=== PATIENT | female | born 1980 | race Native Hawaiian/Other Pacific Islander ===

== ENCOUNTER 2016-12-18 15:41 | Inpatient (IN) | payer MEDICAID ==
[~2016-12-18] VITALS: Ht 172.7 cm; Wt 150.6 kg
[2016-12-18 16:14] VITALS: BP 151/87
--- NOTE | 2016-12-18 19:12 | NUR ---
Patient to OF2.
--- NOTE | 2016-12-18 19:30 | NUR ---
PATIENT PRESENTS TO ED WITH SEEN AT [facility] 5 DAYS AGO AND 2 DAYS AGO SAME COMPLAINT--- PAIN EPIGASTRIC RADIATING RUQ AND RLQ SHARP PAIN---ALSO PAIN TO LOWER BACK RADIATING RLE DENIES INCONTINENCE-- HX---GALLSTONES, SCIATICA?? RX---MOTRIN, HAS NOT FILLED RX OF NORCO AND ZOFRAN; DENIES N/V/D; SKIN IS PINK/WARM/DRY; AAOX4 WITH EVEN AND STEADY GAIT; LUNGS CLEAR BL; HR EVEN AND REGULAR; PT DENIES ANY FEVER, CP, SOB, OR COUGH AT THIS TIME; PATIENT STATES PAIN OF 10/10 AT THIS TIME; VSS; PATIENT POSITIONED FOR COMFORT; HOB ELEVATED; BEDRAILS UP X2; BED DOWN. ER MD MADE AWARE OF PT STATUS.
--- NOTE | 2016-12-18 19:31 | NUR ---
Dr. Ambrocio evaluating patient
[2016-12-18] MEDS ORDERED: HYDROcodone/APAP 10/325 MG 1 TAB TAB PO STA ×2 (19:32→20:46)
[2016-12-18] MEDS ORDERED: ONDANSETRON 4 MG ODT PO ONE (19:35)
--- NOTE | 2016-12-18 19:47 | NUR ---
PT MOVED TO BED 3
--- NOTE | 2016-12-18 20:21 | NUR ---
Ultrasound at bedside.
--- NOTE | 2016-12-18 22:12 | NUR ---
REPORT GIVEN TO ANAHY HARRISON
[2016-12-18] MEDS ORDERED: MORPHINE SULFATE 4 MG/ML SYR IVP PRN (22:15)
[2016-12-18] MEDS ORDERED: MORPHINE SULFATE 2 MG/ML SYR IVP PRN (22:15)
--- NOTE | 2016-12-18 22:30 | NUR ---
X-Ray at bedside.
--- NOTE | 2016-12-18 22:30 | NUR ---
PT C/O 05/02 RUQ PAIN. PT STATES SHE RECEIVED NORCO BUT IT DID NOT HELP. DR. ANDINO MADE AWARE. ORDERS RECEIVED.
[2016-12-18] MEDS ORDERED: HYDROmorphone 1 MG/ML AMP IVP ONE (22:35)
[2016-12-18 22:37] LABS: BASOPHILS # (AUTO) 0.2 K/uL (0.00-0.22); EOSINOPHILS # (AUTO) 0.2 K/uL (0-0.4); EOSINOPHILS % (AUTO) 2.3 % (0.0-4.0); HEMATOCRIT 39.5 % (36-48); HEMOGLOBIN 13.3 g/dL (12.0-16.0); LYMPHOCYTES # (AUTO) 1.8 K/uL (2.5-16.5); LYMPHOCYTES % (AUTO) 26.5 % (20.5-51.1); MEAN CORPUSCULAR HEMOGLOBIN 28 pg (27-31); MEAN CORPUSCULAR HGB CONC 34 g/dL (33-37); MEAN CORPUSCULAR VOLUME 84 fL (80-94); MONOCYTES # (AUTO) 0.6 K/uL (0.8-1.0); MONOCYTES % (AUTO) 9.3 % (1.7-9.3); PLATELET COUNT (AUTO) 195 K/uL (140-450); RED BLOOD CELL COUNT(AUTO) 4.69 MIL/uL (4.20-5.40); RED CELL DISTRIBUTION WIDTH 13.2 % (11.6-13.7); WHITE BLOOD COUNT (AUTO) 6.8 K/uL (4.8-10.8)
--- NOTE | 2016-12-18 22:51 | NUR ---
Patient will be admitted to care of Dr. Sajan Quevedo. Admited to M/S. Will go to [id number]. Belongings list completed. Report to Jossue NORTH.
[2016-12-18 23:00] LABS: BILIRUBIN,URINE 1+ (NEGATIVE); BLOOD, URINE NEGATIVE (NEGATIVE); COLOR,URINE YELLOW (YELLOW); LEUKOCYTE ESTERASE ,URINE NEGATIVE (NEGATIVE); NITRITE, URINE NEGATIVE (NEGATIVE); PROTEIN,URINE NEGATIVE (NEGATIVE); UGLUCOSE NEGATIVE (NEGATIVE)
[2016-12-18 23:04] LABS: ALBUMIN 3.6 g/dL (3.4-5.0); ANION GAP 12.3 (8-16); CALCIUM 8.9 mg/dL (8.5-10.1); CARBON DIOXIDE 27.3 mmol/L (21-32); CREATININE 0.9 mg/dL (0.6-1.3); POTASSIUM 3.6 mmol/L (3.5-5.1); TOTAL BILIRUBIN 0.3 mg/dL (0.0-1.0); TOTAL PROTEIN, SERUM 7.6 g/dL (6.4-8.2)
[2016-12-18] MEDS ORDERED: ONDA8ODT2 PO (23:05)
[2016-12-18] MEDS ORDERED: IBUP-2213 PO (23:05)
--- NOTE | 2016-12-18 23:15 | NUR ---
ADMITTED A PATIENT FROM ER, TRANSPORTED VIA WHEELCHAIR, ACCOMPANIED BY ER EMT. PATIENT IS AAOX4, DENIES PAIN AT THIS TIME. ON ROOM AIR, HAS NO S/S OF RESPIRATORY DISTRESS/DISCOMFORT NOTED. IV SITE PATENT AND INTACT. V/S CHECKED AND STABLE. ID BAND UPDATED, ROOM ORIENTATION DONE, MRSA SWABBING DONE, SKIN CHECKING DONE. PLAN OF CARE DISCUSSED, VERBALIZED UNDERSTANDING. SAFETY MEASURES INITIATED, CALL LIGHT WITHIN REACH. WILL CONTINUE TO MONITOR.
[2016-12-18 23:18] LABS: INR 1.2 (0.8-1.2); PARTIAL THROMBOPLASTIN TIME 24.9 secs (22-35.6); PROTHROMBIN TIME 11.6 secs (10.8-13.4)
[2016-12-18 23:23] LABS: APPEARANCE,URINE CLOUDY (CLEAR)
[2016-12-18 23:30] VITALS: BP 147/89
[2016-12-18] MEDS: DEXT 5% /NACL 0.9% 1,000 ML IV SCH (23:39)
[2016-12-18 23:41] LABS: BACTERIA,URINE OCCASSIONAL /HPF (None Seen); ICTOTEST NEGATIVE (NEGATIVE); RBC,URINE 0-5 (RARE) /HPF (0-5); SQUAMOUS EPITHELIAL CELL,UR 5 /LPF (0-3 (FEW)); URINE AMORPHOUS URATE 2+ /HPF (None Seen); WBC,URINE 0-5 (RARE) /HPF (0-5)
[2016-12-19] VITALS: BP 138/88
[2016-12-19] MEDS: ONDANSETRON 4 MG/2 ML VIAL IVP PRN ×4 (02:05→21:41)
--- NOTE | 2016-12-19 02:14 | NUR ---
PATIENT COMPLAINED OF PAIN AND FEELING NAUSEOUS. ADMINISTERED MEDICATION FOR PAIN AND FOR N/V.
--- NOTE | 2016-12-19 02:41 | NUR ---
PT IS AWAKE , REDUCED PAIN LEVEL SHE STATED. CALL LIGHT WITHIN REACH.
--- NOTE | 2016-12-19 05:30 | NUR ---
PT AMBULATED TO THE REST ROOM, NO DISTRESS NOTED. REMINDED TO USE CALL LIGHT, VERBALIZED UNDERSTANDING.
[2016-12-19 06:49] LABS: BASOPHILS # (AUTO) 0.2 K/uL (0.00-0.22); BASOPHILS % (AUTO) 4.3 % (0.0-2.0); EOSINOPHILS # (AUTO) 0.1 K/uL (0-0.4); HEMATOCRIT 37.6 % (36-48); HEMOGLOBIN 12.5 g/dL (12.0-16.0); LYMPHOCYTES # (AUTO) 1.4 K/uL (2.5-16.5); LYMPHOCYTES % (AUTO) 27.9 % (20.5-51.1); MEAN CORPUSCULAR HEMOGLOBIN 29 pg (27-31); MEAN CORPUSCULAR HGB CONC 33 g/dL (33-37); MEAN CORPUSCULAR VOLUME 86 fL (80-94); MONOCYTES # (AUTO) 0.5 K/uL (0.8-1.0); MONOCYTES % (AUTO) 9.8 % (1.7-9.3); NEUTROPHILS # (AUTO) 2.9 K/uL (1.8-7.7); PLATELET COUNT (AUTO) 184 K/uL (140-450); RED BLOOD CELL COUNT(AUTO) 4.38 MIL/uL (4.20-5.40); WHITE BLOOD COUNT (AUTO) 5.1 K/uL (4.8-10.8)
[2016-12-19 07:12] LABS: ALBUMIN 3.3 g/dL (3.4-5.0); ANION GAP 11.3 (8-16); CALCIUM 8.4 mg/dL (8.5-10.1); CARBON DIOXIDE 28.4 mmol/L (21-32); CREATININE 0.8 mg/dL (0.6-1.3); POTASSIUM 3.7 mmol/L (3.5-5.1); TOTAL BILIRUBIN 0.3 mg/dL (0.0-1.0); TOTAL PROTEIN, SERUM 7.2 g/dL (6.4-8.2)
--- NOTE | 2016-12-19 07:15 | NUR ---
ENDORSED PT TO DAY SHIFT NURSE. PT IN STABLE CONDITION.
--- NOTE | 2016-12-19 07:16 | NUR ---
PT AWAKE AND LYING ON BED, AAOX4 WITH NO S/S OF RESPIRATORY DISTRESS, BUT COMPLAINING OF ABDOMINAL PAIN. PER ROLLWAY MAN RN SHE CANNOT BE GIVEN PAIN MED UNTIL THE HIDA SCAN IS DONE. INFORMED PT THAT SHE WILL BE GIVEN PAIN MEDS AFTER THE SCAN, PT VERBALIZED UNDERSTANDING. SKIN IS INTACT. DISCUSSED PLAN OF CARE, PT VERBALIZED UNDERSTANDING. CALL LIGHT WITHIN REACH, WILL CONTINUE TO MONITOR
[2016-12-19 08:00] VITALS: BP 152/98
[2016-12-19] MEDS: DEXT 5% /NACL 0.9% 1,000 ML IV SCH ×2 (09:09→19:00)
--- NOTE | 2016-12-19 10:20 | NUR ---
DR BURCIAGA PAGED RE: CONSULT
--- NOTE | 2016-12-19 10:21 | NUR ---
NOTIFIED DR IRENE RE: CONSULT, PER MD HE IS NOT AVAILABLE TODAY AND WILL TRANSFER TO DR GAINES
--- NOTE | 2016-12-19 10:25 | NUR ---
DR GAINES NOTIFIED, WILL SEE TODAY OR TOMORROW
--- NOTE | 2016-12-19 10:31 | NUR ---
PER DR BURCIAGA HE IS NOT AVAILABLE, WILL REFER TO DR MARIELA DUARTE MD
--- NOTE | 2016-12-19 11:10 | NUR ---
PATIENT HAS BEEN SCREENED AND CATEGORIZED HIGH NUTRITION RISK. PATIENT WILL BE SEEN WITHIN 1-2 DAYS OF ADMISSION. 12/19/16 - 12/20/16 SADE OCONNOR MBA, RD
--- NOTE | 2016-12-19 11:15 | NUR ---
HIDA SCAN ONGOING AT BEDSIDE
[2016-12-19] MEDS: HYDROmorphone 1 MG/ML AMP IVP PRN ×3 (12:30→21:42)
--- NOTE | 2016-12-19 13:02 | NUR ---
PT AWAKE USING HER PHONE, ALL NEEDS ATTENDED. WILL CONTINUE TO MONITOR
--- NOTE | 2016-12-19 15:44 | NUR ---
PT COMPLAINED OF SHARP PAIN AND CRAMPING ON HER RIGHT LEG. NOTIFIED DR BARRAGAN. WILL ORDER UTS VENOUS OF RIGHT LEG.
[2016-12-19 16:00] VITALS: BP 138/76
--- NOTE | 2016-12-19 17:34 | NUR ---
PT AWAKE, WAS JUST GIVEN PAIN MEDICATION AND SRINATH, STATED SHE IS MORE COMFORTABLE NOW. CALL LIGHT WITHIN REACH, WILL CONTINUE TO MONITOR
--- NOTE | 2016-12-19 19:11 | NUR ---
ENDORSED PT TO CAN COLINDRES IN STABLE CONDITION FOR CONTINUITY OF CARE
--- NOTE | 2016-12-19 19:15 | NUR ---
RECEIVED PT AWAKE, IN PAIN, WILL MEDICATE PRN WHEN DUE, IVF INFUSING WELL, MAINTAINED ON NPO, PLAN OF CARE DISCUSSED, CALL LIGHT WITHIN REACH.
--- NOTE | 2016-12-19 21:45 | NUR ---
MEDICATED WITH DILAUDID IVP FOR PAIN, NAUSEATED, MEDICATED PRN WITH ZOFRAN WITH GOOD RESULT, MONITORED CLOSELY.
[2016-12-19] MEDS: LORazepam 2 MG/ML VIAL IVP PRN (22:44)
--- NOTE | 2016-12-19 22:45 | NUR ---
PT ANXIOUS, MEDICATED PRN WITH ATIVAN IVP, MONITORED CLOSELY.
[2016-12-20] VITALS: BP 135/87
[2016-12-20] MEDS: HYDROmorphone 1 MG/ML AMP IVP PRN ×5 (02:43→18:49)
[2016-12-20] MEDS: DEXT 5% /NACL 0.9% 1,000 ML IV SCH ×2 (04:15→14:15)
[2016-12-20] MEDS: ONDANSETRON 4 MG/2 ML VIAL IVP PRN ×4 (06:35→18:49)
--- NOTE | 2016-12-20 06:35 | NUR ---
COMPLAINING OF PAIN AND NAUSEA, BP-127/77, HR-76, MEDICATED PRN FOR PAIN AND NAUSEA, MONITORED CLOSELY.
[2016-12-20 07:16] LABS: BASOPHILS # (AUTO) 0.1 K/uL (0.00-0.22); BASOPHILS % (AUTO) 1.9 % (0.0-2.0); EOSINOPHILS # (AUTO) 0.1 K/uL (0-0.4); EOSINOPHILS % (AUTO) 1.8 % (0.0-4.0); HEMATOCRIT 38.4 % (36-48); HEMOGLOBIN 12.8 g/dL (12.0-16.0); LYMPHOCYTES # (AUTO) 1.3 K/uL (2.5-16.5); LYMPHOCYTES % (AUTO) 25.7 % (20.5-51.1); MEAN CORPUSCULAR HEMOGLOBIN 29 pg (27-31); MEAN CORPUSCULAR HGB CONC 33 g/dL (33-37); MEAN CORPUSCULAR VOLUME 87 fL (80-94); MONOCYTES # (AUTO) 0.4 K/uL (0.8-1.0); MONOCYTES % (AUTO) 8.1 % (1.7-9.3); NEUTROPHILS # (AUTO) 3.3 K/uL (1.8-7.7); NEUTROPHILS % (AUTO) 62.5 % (42.2-75.2); PLATELET COUNT (AUTO) 166 K/uL (140-450); RED BLOOD CELL COUNT(AUTO) 4.43 MIL/uL (4.20-5.40); RED CELL DISTRIBUTION WIDTH 13.3 % (11.6-13.7); WHITE BLOOD COUNT (AUTO) 5.2 K/uL (4.8-10.8)
--- NOTE | 2016-12-20 07:20 | NUR ---
RECEIVED PT REPORT AT BEDSIDE FROM NIGHT NURSE. PT IS AAOX4 AND SHOWS NO S/S OF DISTRESS ON ROOM AIR. PT IS ON MEDSURG MONITORING. IV NOTED WITH IVF RUNNING ON THE L HAND. PT SKIN IS INTACT. PT BED IS LOWERED, FLAT, WITH CALL LIGHT WITHIN REACH.
[2016-12-20 07:38] LABS: CREATININE 0.7 mg/dL (0.6-1.3); POTASSIUM 3.5 mmol/L (3.5-5.1)
[2016-12-20 07:48] LABS: ANION GAP 11.7 (8-16); CARBON DIOXIDE 26.8 mmol/L (21-32)
[2016-12-20 08:00] VITALS: BP 134/79
--- NOTE | 2016-12-20 10:00 | NUR ---
PT HAS C/O PAIN ON HER ABD. PT IS AWARE PAIN MEDICATION IS NOT DUE UNTIL 1030. WILL MEDICATE WHEN PRN IS AVAILABLE.
--- NOTE | 2016-12-20 10:30 | NUR ---
PT SHOWS NO S/S OF DISTRESS ON ROOM AIR. PT STATES SHE HAS PAIN ON HER ABD. PT WAS GIVEN PRN MEDICATION FOR PAIN. PLEASE SEE EMAR.
--- NOTE | 2016-12-20 12:30 | NUR ---
PT IS IN ROOM AND SHOWS NO S/S OF DISTRESS ON ROOM AIR. PT IS RESTING COMFORTABLY IN BED.
--- NOTE | 2016-12-20 13:37 | NUR ---
PAGED DR. IRENE REGARDING THE CONSULT, AWAITING FOR CALL BACK.
--- NOTE | 2016-12-20 14:00 | NUR ---
PT IS IN BED AND SHOWS NO S/S OF DISTRESS NOTED. PT IS AAOX4 AND C/O PAIN. PT IS AWARE OF NEXT SCHEDULED DOSE AT 1430. WILL CONTINUE TO MONITOR AND DECREASE ENVIRONMENT STIMULI.
--- NOTE | 2016-12-20 14:14 | NUR ---
12/20/16 RD INITIAL ASSESSMENT COMPLETED PLEASE REFER TO NUTRITION ASSESSMENT UNDER CARE ACTIVITY FOR ESTIMATED NUTRITIONAL NEEDS. 1. WHEN MEDICALLY FEASIBLE, INITIATE PO DIET TO START ON CLEAR LIQUID DIET AND ADVANCE TOLERATED TO LOW FAT/LOW CHOLESTEROL DIET 2. RD TO FOLLOW-UP 2-3 DAYS; HIGH RISK YOVANY FINLEY, CHERELLE
--- NOTE | 2016-12-20 14:35 | NUR ---
ADMINISTERED PAIN MEDICATION. PT STATED SHE FEELS HOT. PT TEMP IS 100.1. WILL APPLY COOLING MEASURES TO HELP REDUCE PT TEMP.
[2016-12-20 16:00] VITALS: BP 141/86
--- NOTE | 2016-12-20 16:00 | NUR ---
PT IS IN BED AND SHOWS NO S/S OF DISTRESS. PT TEMP IS NOW 98.6 F. WILL CONTINUE TO MONITOR.
--- NOTE | 2016-12-20 17:54 | NUR ---
SPOKE WITH DR. FINK OVER THE PHONE. MADE AWARE OF THE CONSULT AND STATED HE WILL SEE PT. Sajan AVITIA MADE AWARE. NEW ORDERS GIVEN.
[2016-12-20 18:00] VITALS: BP 157/94
--- NOTE | 2016-12-20 18:02 | NUR ---
Sajan AVITIA HAD BEEN NOTIFIED THAT DR. FLOR, DR. GAINES AND DR. IRENE ARE UNABLE TO SEE PT.
--- NOTE | 2016-12-20 18:30 | NUR ---
DR FINK IS SEEING PT. DR FINK STATED HE WILL NOT BE DOING PROCEDURE. PT IS AWARE. WILL NOTIFY DR. Reggie BARRAGAN.
--- NOTE | 2016-12-20 18:50 | NUR ---
DR BARRAGAN CALLED BACK AND IS AWARE OF DR FINK DECISION. DR BARRAGAN SPOKE WITH ALEKS REGARDING REASONING FOR NOT DOING PROCEDURE.
--- NOTE | 2016-12-20 19:20 | NUR ---
GAVE REPORT TO NIGHT NURSE AT BEDSIDE. PT ENDORSED IN STABLE CONDITION.
--- NOTE | 2016-12-20 19:25 | NUR ---
RECD. RESTING IN BED, AWAKE, A/OX4. RESPIRATION EVEN AND UNLABORED. IV OF D5 NS AT 100 ML/HR INFUSING, LEFT HAND G22. STATED STILL WITH ON AND OFF ABDOMINAL PAIN, 2/ AT THIS TIME. WILL MEDICATE ORDERED. PLAN OF CARE FOR THE SHIFT DISCUSSED. VERBALIZED UNDERSTANDING.
--- NOTE | 2016-12-20 19:55 | NUR ---
DR BARRAGAN WAS PAGED REGARDING PT NPO STATUS. WILL WAIT FOR HIS CALL BACK.
--- NOTE | 2016-12-20 20:05 | NUR ---
INFORMED DR. BARRAGAN, PATIENT ALREADY SEEN BY SURGEONS, NO PLANNED SURGERY FOR PATIENT. ORDERED CLEAR LIQUID FOR TONIGHT, REGULAR DIET FOR BREAKFAST, WILL SEE PATIENT TOMORROW.
--- NOTE | 2016-12-20 21:21 | NUR ---
PT STATING THAT SHE FEELS AGITATED. PT REQUESTING ATIVAN. VS STABLE, WILL GIVE ATIVAN ORDERED.
[2016-12-20] MEDS: LORazepam 2 MG/ML VIAL IVP PRN (21:22)
--- NOTE | 2016-12-20 22:20 | NUR ---
NO ANXIETY NOTED, SLEEPING COMFORTABLY IN BED.
[2016-12-21] VITALS: BP 136/76
[2016-12-21] MEDS: DEXT 5% /NACL 0.9% 1,000 ML IV SCH ×2 (00:15→10:15)
[2016-12-21 02:37] VITALS: BP 129/80
--- NOTE | 2016-12-21 02:40 | NUR ---
PT COMPLAINING OF BACK PAIN 03/02. VS STABLE, WILL MEDICATE ORDERED.
[2016-12-21] MEDS: HYDROmorphone 1 MG/ML AMP IVP PRN ×2 (02:42→11:06)
--- NOTE | 2016-12-21 03:15 | NUR ---
SLEEPING COMFORTABLY IN BED.
--- NOTE | 2016-12-21 06:37 | NUR ---
CONDITION REMAIN STABLE. WILL ENDORSE TO AM NURSE FOR CONTINUITY 0F CARE.
--- NOTE | 2016-12-21 07:20 | NUR ---
RECEIVED PT REPORT AT BEDSIDE FROM NIGHT NURSE. PT IS AAOX4 AND SHOWS NO S/S OF DISTRESS ON ROOM AIR. PT SKIN IS INTACT. PT HAS IV ON THE L HAND WITH IVF RUNNING. PT STATES SHE IS AWARE PAIN MEDICATION IS NOT AVAILABLE YET, HOWEVER PT STATES SHE IS IN PAIN AND WOULD LIKE NEXT DOSE WHEN IT IS AVAILABLE. PT BED IS LOWERED WITH CALL LIGHT WITHIN REACH.
--- NOTE | 2016-12-21 07:20 | NUR ---
ENDORSED TO CAN RAE FOR CONTINUITY OF CARE.
[2016-12-21 08:00] VITALS: BP 146/84
--- NOTE | 2016-12-21 08:00 | NUR ---
PT IS SLEEPING IN BED AND SHOWS NO S/S OF DISTRESS NOTED WILL MONITOR PT PAIN.
--- NOTE | 2016-12-21 11:00 | NUR ---
PT STATED SHE HAD PAIN OF 10/10. ADMINISTERED PRN PAIN MEDICATION. WILL REASSESS.
[2016-12-21] MEDS: ONDANSETRON 4 MG/2 ML VIAL IVP PRN (11:05)
--- NOTE | 2016-12-21 11:30 | NUR ---
PT IS SLEEPING IN BED AND SHOWS NO S/S OF DISTRESS NOTED ON ROOM AIR. BED IS LOWERED AND FLAT WITH CALL LIGHT WITHIN REACH.
[2016-12-21] MEDS ORDERED: traMADol 50 MG TAB PO PRN (12:00)
[2016-12-21] MEDS ORDERED: MAGNESIUM CITRATE 300 ML BTL PO SCH (12:10)
--- NOTE | 2016-12-21 13:15 | NUR ---
PT STATED SHE HAS A LARGE BM AND DID NOT WANT TO RECEIVE SCHEDULE MEDICATION OF CITROMA 300ML BOTTLE. WILL CONTINUE TO MONITOR.
--- NOTE | 2016-12-21 14:50 | NUR ---
PT STATED SHE WAS IN PAIN OF 10/10. PT DENIES CHEST PAIN AND SOB. WILL ADMINISTER PRN PAIN MEDICATION AVAILABLE.
--- NOTE | 2016-12-21 15:30 | NUR ---
PT IS IN ROOM AND WILL BE SEEN BY DR Sajan BARRAGAN. LUCIAN IS AWARE. NOTIFIED DR EPSTEIN WOULD LIKE TO SEE HIM.
[2016-12-21] MEDS ORDERED: TRAM50TA94 PO (15:36)
[2016-12-21] MEDS ORDERED: IBUP-2213 PO (15:36)
[2016-12-21] MEDS ORDERED: ONDA8ODT2 PO (15:36)
[2016-12-21 16:00] VITALS: BP 136/74
--- NOTE | 2016-12-21 17:00 | NUR ---
REMOVED IV, CANNULA INTACT. NO BLEEDING NOTED.
--- NOTE | 2016-12-21 17:25 | NUR ---
PT HAS BEEN DISCHARGED. ALL DISCHARGE INSTRUCTIONS AND PRESCRIPTIONS GIVEN. ALL BELONGINGS AND PRESCRIPTIONS IN PT POSSESSION. PT VERBALIZED UNDERSTANDING. WRISTBANDS REMOVED AND IV WITH CANNULA INTACT. PT LEFT UNIT WITH CARMELA NORTH. PT AMB WITH STEADY GAIT WITH RN PRESENT AT SIDE. PT IN STABLE CONDITION.
--- NOTE | 2016-12-21 17:35 | NUR ---
PT WANTED TO WALK OUT OF HERE. ACCOMPANIED PT TO THE LOBBY AND OUT TO THE FRONT OF THE HOSPITAL. PT IS IN STABLE CONDITION.
== END 2016-12-21 17:35 | disposition home or self-care (01) ==
LOC: MED 15:41 → MTU 22:22
PROVIDERS: ADMIT Preventive Medicine Preventive Medicine/Occupational Environmental Medicine; ATTEND Preventive Medicine Preventive Medicine/Occupational Environmental Medicine
DX: K80.20 Calculus of gallbladder without cholecystitis without obstruction (principal); K76.0 Fatty (change of) liver, not elsewhere classified; Z68.43 Body mass index [BMI] 50.0-59.9, adult; E66.01 Morbid (severe) obesity due to excess calories; G89.29 Other chronic pain; R03.0 Elevated blood-pressure reading, without diagnosis of hypertension; K59.00 Constipation, unspecified; Z76.5 Malingerer [conscious simulation]
CPT/HCPCS: 36415; 71010; 76705; 78445; 80048; 80053; 81001; 81025; 85025; 85610; 85730; 87081; 93971; 96374; 99285; J1170; J2060; J2270; J2405; J7042; Q0092; S0119